=== PATIENT | male | born 1995 | race Caucasian/White ===

== ENCOUNTER 2016-11-12 17:19 | Emergency (ER) | payer OTHER ==
[2016-11-12] MEDS ORDERED: DEXAMETHASONE 10 MG/ML VIAL IM STA (18:38)
[2016-11-12] MEDS ORDERED: LIDOCAINE-PF 4% 5 ML AMP SUBQ ONE (18:38)
[2016-11-12] MEDS ORDERED: BENZOCAINE/TETRACAINE/BUTAMBEN 20 GM TOP PRN (18:40)
[2016-11-12] MEDS ORDERED: DEXAMETHASONE 10 MG/ML VIAL ONE ×2 (18:41→19:49)
[2016-11-12] MEDS ORDERED: BENZOCAINE/TETRACAINE/BUTAMBEN SPRAY 56 GM ONE (18:41)
[2016-11-12] MEDS ORDERED: SODIUM CHLORIDE 0.9% 2,000 ML IV ONE (19:37)
[2016-11-12] MEDS ORDERED: ONDANSETRON 4 MG/2 ML VIAL IVP STA (19:37)
[2016-11-12] MEDS ORDERED: AMOX/CLAV 875 MG/125 MG TABLET PO STA (19:37)
[2016-11-12] MEDS ORDERED: DEXAMETHASONE 10 MG/ML VIAL IVP STA (19:42)
[2016-11-12] MEDS ORDERED: ONDANSETRON 4 MG/2 ML VIAL ONE (19:49)
[2016-11-12] MEDS ORDERED: AMOX/CLAV 875 MG/125 MG TABLET PO ONE (20:43)
== END 2016-11-12 21:30 | disposition home or self-care (01) ==
DX: J36 Peritonsillar abscess (principal)
CPT/HCPCS: 10160; 87070; 87430; 94640; 96361; 96372; 96374; 96375; 99283; 99284; A9270

== ENCOUNTER 2016-11-27 19:33 | Emergency (ER) | payer OTHER ==
[2016-11-27] MEDS ORDERED: predniSONE 20 MG TABLET PO STA (20:22)
[2016-11-27] MEDS ORDERED: AMOX/CLAV 875 MG/125 MG TABLET PO STA (20:22)
[2016-11-27] MEDS ORDERED: HYDROcod/ACET 5/325 Prepack 6 PO STA (20:23)
[2016-11-27] MEDS ORDERED: predniSONE 20 MG TABLET ONE (20:29)
[2016-11-27] MEDS ORDERED: HYDROcod/ACET 5/325 Prepack 6 PO ONE (20:29)
[2016-11-27] MEDS ORDERED: AMOX/CLAV 875 MG/125 MG TABLET PO ONE (20:29)
== END 2016-11-27 20:37 | disposition home or self-care (01) ==
DX: J36 Peritonsillar abscess (principal)
CPT/HCPCS: 87070; 87430; 99283; A9270; J7512